=== PATIENT | male | born 1970 | race American Indian/Alaskan Native ===

== ENCOUNTER 2018-12-22 07:20 | Day surgery (SDC) | payer OTHER ==
[~2018-12-22 07:20] MED LIST: WATER FOR IRRIG STERILE IR ONE; WATER FOR IRRIG STERILE ONE
[2018-12-22] MEDS ORDERED: DIPRIVAN 10 MG/ML IV ONE ×3 (07:46)
--- NOTE | 2018-12-22 07:57 | Anesthesia Day of Surgery ---
Anesthesia Day of Surgery - Day of Surgery Patient Examined: Yes Patient H&P Reviewed: Yes Patient is NPO: Yes
[2018-12-22] MEDS ORDERED: NACL 0.9% 1000 ML 1,000 ML IV SCH (08:00)
--- NOTE | 2018-12-22 08:00 | Anesthesia Consultation ---
Anesthesia Consult and Med Hx Date of service: 12/22/18 - Airway Anesthetic Teeth Evaluation: Good ROM Head & Neck: Adequate Mental/Hyoid Distance: Adequate Mallampati Class: Class II Intubation Access Assessment: Good - Pre-Operative Health Status ASA Pre-Surgery Classification: ASA2 Proposed Anesthetic Plan: MAC - Cardiovascular System Hx Hypertension: Yes - Gastrointestinal Hx Gastroesophageal Reflux Disease: Yes - Endocrine Hx Non-Insulin Dependent Diabetes: Yes
--- NOTE | 2018-12-22 08:56 | Procedure Note ---
Date of procedure: 12/22/18 Pre-op diagnosis: GERD and Colon Polyp Screening Post-op diagnosis: other (Moderate,Erosive Esophagitis/Gastritis/Small,Hiatal Hernia/R/O Celiac Disease/Multiple,Colon Polyps (Sigmoid and Recto-Sigmoid area)/Minor,Left Colon Diverticuli) Procedure: EGD with Biopsy and Colonoscopy and Cold Snare Polypectomy and Cold Biopsy [place] [facility] [place]: SÁNCHEZ HICKS Estimated blood loss: minimal Pathology: list Specimen disposition: to lab Condition: stable Disposition: same day (Treat with PPI and encourage fiber intake and avoid aspirin and NSAID for 5 days and follow up in 1 to 2 weeks ([phone]).)
[2018-12-22 09:20] VITALS: BP 130/91
--- NOTE | 2018-12-22 09:56 | Operative Report ---
PROCEDURE: EGD with biopsy. The patient's procedure was done at [facility] on 12/22/2018. INDICATIONS: This is a 48-year-old -[place] gentleman with an underlying history of diabetes and hypertension, who has diabetes mellitus type 2 and hypertension, who has been having GERD symptoms. EGD was done to assess for the problem. DESCRIPTION OF PROCEDURE: Procedure was done after getting informed consent with MAC anesthesia. Instrument was passed through the hypopharynx into the esophagus, which showed moderate erosive esophagitis. Biopsy was done from the distal esophagus. The stomach showed a small hiatal hernia on the retroverted view. The stomach showed antral gastritis. Biopsy was done from the gastric body, the gastric antrum, and the angle incisura to rule out for H. pylori and atrophic gastritis. The pylorus was patent. The duodenum in the first and the second portion appeared normal. Biopsy was done from the second part to rule out for possible celiac disease. There was minimal bleeding from the biopsy sites and no complications associated with the procedure. ASSESSMENT: Gastroesophageal reflux disease symptoms, moderate erosive esophagitis, small hiatal hernia, gastritis, rule out celiac disease. PLAN: Plan is to treat the patient with PPI, have the patient avoid aspirin and aspirin-related products for the next few days and follow up in the office in 7-10 days' time. A colonoscopy is also to be done as part of colon polyp screening. Procedure was done with assistance of anesthesia and in the presence and with the assistance of the GI lab team, which included Denise PÉREZ as well as Lauren yen. JOB# [id number] SUZY/VICKEY
--- NOTE | 2018-12-22 10:08 | Operative Report ---
PROCEDURE: Colonoscopy. A 48-year-old -[place] gentleman with an underlying history of diabetes mellitus type 2, hypertension, who had an EGD done for GERD symptoms. Prior to the colonoscopy, EGD had shown moderate erosive esophagitis, a small hiatal hernia and gastritis. Biopsy was also taken to rule out for celiac disease since the patient has an underlying history of diabetes mellitus. Colonoscopy was done as part of colon polyp screening. Because of his age, initial rectal exam was unremarkable. Instrument was passed through the rectum onto the cecum, which was identified with ileocecal valve and the appendiceal orifice. Visualization was fair. Mucosa was washed with copious amounts of water. The cecum, ascending colon and transverse colon showed normal mucosa. There were minor diverticula noted in the left colon, in the sigmoid and rectosigmoid area. There were 4 polyps noted, 2 removed by cold snare polypectomy and 2 by cold biopsy, and the rectum appeared normal on the retroverted view. There was minimal bleeding from the biopsy sites. No complications associated with the procedure. ASSESSMENT: Colon polyp screening, a total of 4 colon polyps noted in the sigmoid and the rectosigmoid area, removed by cold snare polypectomy and cold biopsy, minor diverticula and the prep was fair. There was minimal bleeding from the biopsy sites. No complications associated with the procedure. The patient will be encouraged to take fiber supplements, avoid aspirin and aspirin-related products, placed on a PPI because of the upper GI findings of esophagitis and gastritis, and follow up in the office in 1-2 weeks' time. Procedure was done in the GI lab with assistance and in the presence of the GI lab team, which included Denise PÉREZ, and Lauren yen, and also with the assistance of anesthesia. JOB# [id number] SUZY/VICKEY
== END 2018-12-22 07:21 | disposition home or self-care (01) ==
LOC: GIO 07:20
DX: Z12.11 Encounter for screening for malignant neoplasm of colon (principal); D12.7 Benign neoplasm of rectosigmoid junction; K29.50 Unspecified chronic gastritis without bleeding; K31.89 Other diseases of stomach and duodenum; K21.0 Gastro-esophageal reflux disease with esophagitis; K63.5 Polyp of colon; K57.30 Diverticulosis of large intestine without perforation or abscess without bleeding; E11.9 Type 2 diabetes mellitus without complications; I10 Essential (primary) hypertension; K44.9 Diaphragmatic hernia without obstruction or gangrene; B96.81 Helicobacter pylori [H. pylori] as the cause of diseases classified elsewhere; Z79.84 Long term (current) use of oral hypoglycemic drugs; Z79.899 Other long term (current) drug therapy
CPT/HCPCS: 82962; 88305; 88342; J2704; J7030